=== PATIENT | male | born 1955 | race Two or more races ===

== ENCOUNTER 2024-12-26 14:01 | Emergency (ER) | payer SELFPAY ==
[~2024-12-26] VITALS: Ht 170.2 cm; Wt 81.8 kg
[2024-12-26 14:07] VITALS: TEMP 98
[2024-12-26 16:45] VITALS: BP 125/84; PULSE 66; RESP 17; O2SAT 99
[2024-12-26] MEDS ORDERED: ERYTHROMYCIN 0.5% 3.5 GM TUBE OPHTHALMIC OINTMENT OD ONE (17:00)
[2024-12-26] MEDS ORDERED: ERYT3.5O8 OS ×2 (17:13→17:28)
[2024-12-26] MEDS: ERYTHROMYCIN 0.5% 3.5 GM TUBE OPHTHALMIC OINTMENT OS ONE (17:19)
[2024-12-26] MEDS: ACETAMINOPHEN 500 MG TABLET PO ONE (17:20)
[2024-12-26] MEDS ORDERED: SULF15DR26 OS (17:28)
[2024-12-26] MEDS ORDERED: ACET-2080 PO (17:28)
== END 2024-12-26 18:32 | disposition home or self-care (01) ==
LOC: EMS 14:07
DX: T15.02XA Foreign body in cornea, left eye, initial encounter (principal); W44.9XXA Unspecified foreign body entering into or through a natural orifice, initial encounter; Y93.89 Activity, other specified; Y92.89 Other specified places as the place of occurrence of the external cause; Y99.8 Other external cause status
CPT/HCPCS: 65220; 99284; Z7502; Z7610